=== PATIENT | male | born 1975 | race Caucasian/White ===

== ENCOUNTER 2017-04-01 18:17 | Emergency (ER) | payer OTHER ==
[~2017-04-01] VITALS: Ht 172.7 cm; Wt 80.0 kg
[2017-04-01 18:51] VITALS: BP 129/62; RESP 16; TEMP 98; Ht 172.7 cm; Wt 80.0 kg
[2017-04-01] MEDS ORDERED: CEPH-443 PO (19:05)
[2017-04-01] MEDS ORDERED: IBUP-1542 PO (19:05)
[2017-04-01] MEDS ORDERED: OXYCODONE/ACETAMINOPHEN (5/325) TAB PO ONE (19:30)
[2017-04-01] MEDS ORDERED: IBUPROFEN 600 MG TAB PO ONE (19:30)
--- NOTE | 2017-04-02 00:57 | ERD ---
ER Documentation Chief Complaint Date/Time DATE: 04/02/17 TIME: 00:54 Chief Complaint medical clearance HPI 42-year-old man brought here by [employer] for medical clearance after puncture wounds to the back from Taser darts. Patient denies chest pain or shortness of breath, no head or neck injury, no complaints of abdominal pain. ROS All systems reviewed and are negative except as per history of present illness. Medications Home Meds Active Scripts Cephalexin* (Keflex*) 500 Mg Capsule, 500 MG PO TID for 3 Days, CAP Prov:CHASITY BUTLER MD 04/01/17 Ibuprofen* (Motrin*) 600 Mg Tab, 600 MG PO Q8 for PAIN AND/OR INFLAMMATION, #30 TAB Prov:CHASITY BUTLER MD 04/01/17 Allergies Allergies: Coded Allergies: Penicillins (Verified Allergy, Intermediate, rash, SOB, 04/01/17) PMhx/Soc None Medical and Surgical Hx: pt denies Surgical Hx History of Surgery: No Anesthesia Reaction: No Hx Neurological Disorder: No Hx Respiratory Disorders: No Hx Cardiac Disorders: No Hx Psychiatric Problems: No Hx Miscellaneous Medical Probl: Yes (Hep C) Hx Alcohol Use: Yes Hx Substance Use: Yes Hx Tobacco Use: Yes Smoking Status: Current some day smoker FmHx Family History: No diabetes Physical Exam Vitals Vital Signs Date Time Temp Pulse Resp B/P Pulse Ox O2 Delivery O2 Flow Rate FiO2 04/01/17 18:51 98.0 71 16 129/62 98 04/01/17 18:51 98.0 16 129/62 98 Physical Exam GENERAL: Well-developed, well-nourished, well-hydrated, in no apparent distress , looks nontoxic in appearance HEENT: Moist mucous membranes, pink conjunctiva, no cervical spine tenderness or step-off deformities, no goiter, no jaundice or icterus, extraocular movements intact without pain. No submandibular induration, and no pharyngeal erythema NEURO: Alert and oriented 3, cranial nerves II through XII intact bilaterally, pupils equal round reactive to light, no focal deficits or facial asymmetry, sensation intact distally Strength 5/5 in upper and lower extremities bilaterally CARDIAC: Regular rate and rhythm, no murmurs rubs or gallops LUNGS: Clear bilaterally no wheezing crackles or stridor ABDOMEN: Soft nontender, no guarding, no rigidity, no rebound, no psoas sign no obturator sign. Normoactive bowel sounds SKIN: Warm and dry to touch, no abrasions, contusions, or hematomas, no lacerations, no ecchymosis, no target lesions, and without ulcers EXTREMITIES: No clubbing cyanosis or edema, calves are bilaterally symmetrical, no Homans sign, no popliteal cord sign. Distal pulses equal and bilateral PSYCH: Normal affect without agitation or irritability Results 24 hrs Current Medications Medications (Trade) Dose Ordered Sig/Anna Route PRN Reason Start Time Stop Time Status Last Admin Dose Admin Ibuprofen (Motrin) 600 mg ONCE ONCE PO 04/01/17 19:30 04/01/17 19:30 DC 04/01/17 19:07 Oxycodone/ Acetaminophen (Percocet (5/ 325)) 1 tab ONCE ONCE PO 04/01/17 19:30 04/01/17 19:30 DC 04/01/17 19:08 Procedures/MDM There were 2 taser darts in the soft tissue of the back 1 to the thoracic back in 1 to the lumbar back. Both were removed, puncture wounds were visualized, no forearm bodies or debris was noted. Gauze dressing was applied. I administered ibuprofen 600 mg p.o. and Percocet 1 tablet p.o. Patient's medical symptoms have stabilized while in the department. Patient is medically cleared and appropriate for discharge under [employer] custody. Patient feels much better at this time, and vital signs are normal, symptoms have improved. I did give strict instructions to return to the ED if symptoms continue or worsen, patient will otherwise follow-up with primary care physician. Patient understood instructions and agreed to plan. Departure Diagnosis: Primary Impression: Puncture wound Additional Impression: Encounter for medical clearance for patient hold Condition: Good Patient Instructions: Senior Care Clearance, Puncture Wound, General CHASITY BUTLER MD April 02, 2017 00:57
== END 2017-04-01 19:14 | disposition home or self-care (01) ==
LOC: E/R 18:17
DX: S21.94 Puncture wound with foreign body of unspecified part of thorax (principal); S31.040A Puncture wound with foreign body of lower back and pelvis without penetration into retroperitoneum, initial encounter; T75.4XXA Electrocution, initial encounter; F17.210 Nicotine dependence, cigarettes, uncomplicated; W86.8XXA Exposure to other electric current, initial encounter; Y92.9 Unspecified place or not applicable; Z02.89 Encounter for other administrative examinations
CPT/HCPCS: 99283